=== PATIENT | male | born 1935 | race African-American/Black ===

== ENCOUNTER 2018-06-16 11:37 | Inpatient (IN) | payer MEDICARE, OTHER ==
[~2018-06-16] VITALS: Ht 172.7 cm; Wt 75.3 kg
[~2018-06-16 11:37] MED LIST: ALBU18HF2 INH; ALBUTEROL INH INH; ASCO125T PO; ASPI-1079 PO; ATROV INH; BUDE6HFA INH; DILT120T2 PO; FERR-63 PO; FINA5TAB11 PO; FLONAS; FLUT50DI IH; FOLI-43 PO; FURO20TA4 PO; LOSA50TA20 PO; MONT10TA21 PO; POTA20TA12 PO; SIMV40TA5 PO; TIOT18CA3 INH; TRAV2.5D BOTHEYE; UMEC62.5 IH; [UNRECOGNIZED DRUG - CODE] PO
[2018-06-16] MEDS ORDERED: METHYLPREDNISOLONE SOD SUCC 125 MG/2 ML VIAL IV STA (11:43)
[2018-06-16] MEDS ORDERED: IPRATROPIUM BROMIDE (0.02%) 0.5MG/2.5ML NEB HHN STA (11:43)
[2018-06-16] MEDS ORDERED: MAGNESIUM 2 G PREMIX 50 ML IV STA (11:43)
[2018-06-16] MEDS ORDERED: ALBUTEROL (0.083%) 2.5MG/3ML NEB HHN STA (11:43)
[2018-06-16 12:21] LABS: BASOPHILS % 0.4 % (0.0-2.0); EOSINOPHILS % 6.7 % (0.0-5.0); HEMATOCRIT. 37.5 % (42.0-52.0); HEMOGLOBIN. 12.5 g/dL (14.0-18.0); LYMPHOCYTES % 18.9 % (20.0-50.0); MEAN CORPUSCULAR HEMOGLOBIN 34.4 pg (28.0-32.0); MEAN CORPUSCULAR VOLUME 103.1 fL (80.0-94.0); MEAN PLATELET VOLUME 7.4 fl (7.4-10.4); PLATELET 264 x1000/uL (130-400); RED BLOOD CELL COUNT 3.64 mill/uL (4.7-6.1); RED CELL DISTRIBUTION WIDTH 13.5 % (11.6-14.6)
[2018-06-16 12:27] LABS: CHLORIDE 105 mEq/L (98-107)
[2018-06-16 12:28] LABS: PROTHROMBIN TIME 10.2 sec (9.4-11.6)
[2018-06-16] MEDS ORDERED: LEVOFLOXACIN 750MG PREMIX 150 ML IV ONE (13:45)
[2018-06-16 17:05] VITALS: BP 138/83
[2018-06-16] MEDS: IPRATROPIUM/ALBUTEROL 0.5-3(2.5)MG/3ML NEB HHN SCH ×2 (17:57→20:08)
[2018-06-16 18:00] VITALS: BP 145/86
[2018-06-16] MEDS: METHYLPREDNISOLONE SOD SUCC 125 MG/2 ML VIAL IV SCH ×2 (18:04→23:22)
[2018-06-16 20:00] VITALS: BP 133/73
[2018-06-16] MEDS ORDERED: ENOXAPARIN 40MG/0.4ML SYR SUBCUT SCH (20:00)
[2018-06-16 22:00] VITALS: BP 161/84
[2018-06-16] MEDS ORDERED: MONTELUKAST SODIUM 10MG TABLET PO NR (22:00)
[2018-06-16] MEDS ORDERED: DILTIAZEM HCL 300MG CAPSULE SR 24HR PO NR (22:00)
[2018-06-16] MEDS ORDERED: LOSARTAN POTASSIUM 50 MG TABLET PO NR (22:00)
[2018-06-16] MEDS ORDERED: LORAZEPAM 2MG/ML CPJ IV PRN (22:00)
[2018-06-17] VITALS (13 sets, daily range): BP systolic 121–166; BP diastolic 68–92
[2018-06-17] MEDS ORDERED: CLONIDINE 0.1MG TABLET PO PRN
[2018-06-17 00:02] LABS: BG BASE EXCESS 0.2 mmol/L (-2.0-2.0); BG BILEVEL POS AIRWAY PRESSURE 15/5; BG CARBOXYHEMOGLOBIN 0.4 % (0.5-1.5); BG DEOXYHEMOGLOBIN 5.7 % (0.0-5.0); BG FRACTION INSPIRED OXYGEN 35; BG HCO3 ACT 25.1 mmol/L (22.0-26.0); BG METHEMOGLOBIN 0.2 % (0.0-1.5); BG OXYGEN SATURATION 94.3 % (92.0-98.5); BG OXYHEMOGLOBIN 93.7 % (94.0-97.0); BG PCO2 41.9 mmHg (35.0-45.0); BG PH 7.396 (7.350-7.450); BG PO2 75.3 mmHg (75.0-100.0); BG SAMPLE SITE RIGHT RADIAL; BG TOTAL HEMOGLOBIN 13.3 g/dL (12.0-18.0); BG VENT MODE MASK - BIPAP; BG VENT RATE 14 set
[2018-06-17] MEDS: IPRATROPIUM/ALBUTEROL 0.5-3(2.5)MG/3ML NEB HHN SCH ×7 (00:07→21:01)
[2018-06-17] MEDS: METHYLPREDNISOLONE SOD SUCC 125 MG/2 ML VIAL IV SCH ×3 (05:38→17:48)
[2018-06-17] MEDS: FUROSEMIDE 20MG TABLET PO SCH (10:06)
[2018-06-17] MEDS: ASPIRIN 81MG TABLET PO SCH (10:06)
[2018-06-17] MEDS: DILTIAZEM HCL 300MG CAPSULE SR 24HR PO SCH (10:06)
[2018-06-17] MEDS: POTASSIUM CHLORIDE 20MEQ TABLET SR PO SCH (10:07)
[2018-06-17] MEDS: FINASTERIDE 5MG TABLET PO SCH (10:07)
[2018-06-17] MEDS: FERROUS SULFATE 325MG TABLET PO SCH ×2 (10:07→17:48)
[2018-06-17] MEDS: MONTELUKAST SODIUM 10MG TABLET PO SCH (10:07)
[2018-06-17] MEDS: LOSARTAN POTASSIUM 50 MG TABLET PO SCH (10:07)
[2018-06-17] MEDS: FLUTICASONE PROPIONATE 50MCG/SPRAY BOTTLE BOTHNSTRLS SCH (10:08)
[2018-06-17] MEDS ORDERED: CLONIDINE 0.2MG TABLET PO PRN (13:45)
[2018-06-17] MEDS: LEVOFLOXACIN 500MG PREMIX 100 ML IV SCH (14:59)
[2018-06-17] MEDS: ENOXAPARIN 80MG/0.8ML SYR SUBCUT SCH (21:14)
[2018-06-18] VITALS (13 sets, daily range): BP systolic 126–153; BP diastolic 62–99
[2018-06-18] MEDS: METHYLPREDNISOLONE SOD SUCC 125 MG/2 ML VIAL IV SCH ×5 (00:21→23:28)
[2018-06-18] MEDS: IPRATROPIUM/ALBUTEROL 0.5-3(2.5)MG/3ML NEB HHN SCH ×6 (00:35→20:49)
[2018-06-18 05:36] LABS: HEMOGLOBIN. 12.3 g/dL (14.0-18.0); MEAN CORPUSCULAR HEMOGLOBIN 34.5 pg (28.0-32.0); MEAN CORPUSCULAR VOLUME 104.1 fL (80.0-94.0); MEAN PLATELET VOLUME 7.4 fl (7.4-10.4); PLATELET 264 x1000/uL (130-400); RED BLOOD CELL COUNT 3.55 mill/uL (4.7-6.1); RED CELL DISTRIBUTION WIDTH 13.7 % (11.6-14.6)
[2018-06-18 06:16] LABS: CHLORIDE 104 mEq/L (98-107)
[2018-06-18 06:28] LABS: CREATINE KINASE MB FRACTION 4.4 ng/mL (0.5-3.6); LDL CHOLESTEROL 55 mg/dL (5-100)
[2018-06-18 06:29] LABS: CREATINE KINASE 206 IU/L (39-308); HDL CHOLESTEROL 70 mg/dL (40-59)
[2018-06-18] MEDS: ASPIRIN 81MG TABLET PO SCH (09:54)
[2018-06-18] MEDS: POTASSIUM CHLORIDE 20MEQ TABLET SR PO SCH (09:54)
[2018-06-18] MEDS: DILTIAZEM HCL 300MG CAPSULE SR 24HR PO SCH (09:54)
[2018-06-18] MEDS: FERROUS SULFATE 325MG TABLET PO SCH ×2 (09:54→18:06)
[2018-06-18] MEDS: FUROSEMIDE 20MG TABLET PO SCH (09:54)
[2018-06-18] MEDS: FINASTERIDE 5MG TABLET PO SCH (09:54)
[2018-06-18] MEDS: MONTELUKAST SODIUM 10MG TABLET PO SCH (09:54)
[2018-06-18] MEDS: LOSARTAN POTASSIUM 50 MG TABLET PO SCH (09:54)
[2018-06-18] MEDS: ENOXAPARIN 80MG/0.8ML SYR SUBCUT SCH (09:55)
[2018-06-18] MEDS: FLUTICASONE PROPIONATE 50MCG/SPRAY BOTTLE BOTHNSTRLS SCH (10:01)
[2018-06-18 13:27] LABS: PLATELET ESTIMATE NORMAL
[2018-06-18] MEDS: LEVOFLOXACIN 500MG PREMIX 100 ML IV SCH (13:40)
[2018-06-19] VITALS (14 sets, daily range): BP systolic 129–154; BP diastolic 64–88
[2018-06-19] MEDS: IPRATROPIUM/ALBUTEROL 0.5-3(2.5)MG/3ML NEB HHN SCH ×6 (00:30→20:16)
[2018-06-19] MEDS: METHYLPREDNISOLONE SOD SUCC 125 MG/2 ML VIAL IV SCH ×4 (06:19→23:43)
[2018-06-19 06:52] LABS: CHLORIDE 102 mEq/L (98-107)
[2018-06-19] MEDS: FERROUS SULFATE 325MG TABLET PO SCH ×2 (07:46→17:23)
[2018-06-19] MEDS: FUROSEMIDE 20MG TABLET PO SCH (08:43)
[2018-06-19] MEDS: FINASTERIDE 5MG TABLET PO SCH (08:44)
[2018-06-19] MEDS: MONTELUKAST SODIUM 10MG TABLET PO SCH (08:44)
[2018-06-19] MEDS: DILTIAZEM HCL 300MG CAPSULE SR 24HR PO SCH (08:44)
[2018-06-19] MEDS: ASPIRIN 81MG TABLET PO SCH (08:44)
[2018-06-19] MEDS: POTASSIUM CHLORIDE 20MEQ TABLET SR PO SCH (08:44)
[2018-06-19] MEDS: ENOXAPARIN 40MG/0.4ML SYR SUBCUT SCH (08:44)
[2018-06-19] MEDS: FLUTICASONE PROPIONATE 50MCG/SPRAY BOTTLE BOTHNSTRLS SCH (08:44)
[2018-06-19] MEDS: LOSARTAN POTASSIUM 50 MG TABLET PO SCH (08:44)
[2018-06-19] MEDS: GUAIFENESIN 600MG ER TABLET PO SCH ×2 (11:34→20:33)
[2018-06-19] MEDS: LEVOFLOXACIN 500MG PREMIX 100 ML IV SCH (13:43)
[2018-06-20] VITALS (10 sets, daily range): BP systolic 122–153; BP diastolic 66–87
[2018-06-20] MEDS: IPRATROPIUM/ALBUTEROL 0.5-3(2.5)MG/3ML NEB HHN SCH ×5 (00:58→15:52)
[2018-06-20] MEDS: METHYLPREDNISOLONE SOD SUCC 125 MG/2 ML VIAL IV SCH ×2 (05:26→12:23)
[2018-06-20 05:38] LABS: HEMATOCRIT. 37.3 % (42.0-52.0); HEMOGLOBIN. 12.6 g/dL (14.0-18.0); MEAN CORPUSCULAR HEMOGLOBIN 34.6 pg (28.0-32.0); MEAN CORPUSCULAR VOLUME 102.9 fL (80.0-94.0); MEAN PLATELET VOLUME 7.5 fl (7.4-10.4); PLATELET 271 x1000/uL (130-400); RED BLOOD CELL COUNT 3.62 mill/uL (4.7-6.1); RED CELL DISTRIBUTION WIDTH 13.5 % (11.6-14.6)
[2018-06-20 05:43] LABS: CHLORIDE 103 mEq/L (98-107)
[2018-06-20] MEDS: DILTIAZEM HCL 300MG CAPSULE SR 24HR PO SCH (07:59)
[2018-06-20] MEDS: FINASTERIDE 5MG TABLET PO SCH (07:59)
[2018-06-20] MEDS: LOSARTAN POTASSIUM 50 MG TABLET PO SCH (07:59)
[2018-06-20] MEDS: GUAIFENESIN 600MG ER TABLET PO SCH (07:59)
[2018-06-20] MEDS: FERROUS SULFATE 325MG TABLET PO SCH (07:59)
[2018-06-20] MEDS: POTASSIUM CHLORIDE 20MEQ TABLET SR PO SCH (08:00)
[2018-06-20] MEDS: ASPIRIN 81MG TABLET PO SCH (08:00)
[2018-06-20] MEDS: MONTELUKAST SODIUM 10MG TABLET PO SCH (08:00)
[2018-06-20] MEDS: FUROSEMIDE 20MG TABLET PO SCH (08:00)
[2018-06-20] MEDS: ENOXAPARIN 40MG/0.4ML SYR SUBCUT SCH (08:01)
[2018-06-20] MEDS: FLUTICASONE PROPIONATE 50MCG/SPRAY BOTTLE BOTHNSTRLS SCH (08:13)
[2018-06-20] MEDS ORDERED: LEVOFLOXACIN 500MG TABLET PO SCH (14:00)
[2018-06-20 15:28] LABS: PLATELET ESTIMATE NORMAL
== END 2018-06-20 17:00 | disposition home or self-care (01) | DRG 189 ==
LOC: ER 11:53 → 3WST 13:43 → ENRESERV 14:47 → EDBEDREQ 16:20
PROVIDERS: ADMIT Internal Medicine; ATTEND Internal Medicine
PROC: 5A09357 Assistance with Respiratory Ventilation, Less than 24 Consecutive Hours, Continuous Positive Airway Pressure (ICD-10-PCS; principal; 2018-06-16)
PROC: 5A09357 Assistance with Respiratory Ventilation, Less than 24 Consecutive Hours, Continuous Positive Airway Pressure (ICD-10-PCS; 2018-06-17)
PROC: 5A09357 Assistance with Respiratory Ventilation, Less than 24 Consecutive Hours, Continuous Positive Airway Pressure (ICD-10-PCS; 2018-06-18)
DX: J96.20 Acute and chronic respiratory failure, unspecified whether with hypoxia or hypercapnia (principal); J44.1 Chronic obstructive pulmonary disease with (acute) exacerbation; K55.9 Vascular disorder of intestine, unspecified; J44.0 Chronic obstructive pulmonary disease with (acute) lower respiratory infection; I82.503 Chronic embolism and thrombosis of unspecified deep veins of lower extremity, bilateral; J20.9 Acute bronchitis, unspecified; I25.10 Atherosclerotic heart disease of native coronary artery without angina pectoris; N13.9 Obstructive and reflux uropathy, unspecified; K57.30 Diverticulosis of large intestine without perforation or abscess without bleeding; I44.7 Left bundle-branch block, unspecified; D64.9 Anemia, unspecified; Z96.643 Presence of artificial hip joint, bilateral; E78.00 Pure hypercholesterolemia, unspecified; E11.9 Type 2 diabetes mellitus without complications; R26.9 Unspecified abnormalities of gait and mobility; D72.829 Elevated white blood cell count, unspecified; G89.29 Other chronic pain; I11.0 Hypertensive heart disease with heart failure; M54.5 Low back pain; I50.9 Heart failure, unspecified; M75.92 Shoulder lesion, unspecified, left shoulder; Z82.49 Family history of ischemic heart disease and other diseases of the circulatory system; Z85.46 Personal history of malignant neoplasm of prostate; Z99.81 Dependence on supplemental oxygen; Z87.19 Personal history of other diseases of the digestive system; Z79.899 Other long term (current) drug therapy; Z95.5 Presence of coronary angioplasty implant and graft; Z79.51 Long term (current) use of inhaled steroids; Z79.82 Long term (current) use of aspirin
CPT/HCPCS: 36415; 36600; 71045; 76700; 80048; 80053; 80061; 82375; 82550; 82553; 82805; 83735; 83880; 84439; 84443; 84480; 84484; 85025; 85379; 85610; 87040; 93005; 93970; 96365; 96375; 97116; 97162; 99291; J1650; J1956; J2060; J2930; J3475; J7611; J7620

== ENCOUNTER 2019-03-11 12:30 | Emergency (ER) | payer MEDICARE, OTHER ==
[~2019-03-11] VITALS: Ht 170.2 cm; Wt 73.0 kg
[2019-03-11 13:55] VITALS: BP 154/67
== END 2019-03-11 14:15 | disposition home or self-care (01) ==
LOC: ER 12:30
DX: L02.212 Cutaneous abscess of back [any part, except buttock and flank] (principal); L97.311 Non-pressure chronic ulcer of right ankle limited to breakdown of skin; J44.9 Chronic obstructive pulmonary disease, unspecified; I10 Essential (primary) hypertension; Z99.81 Dependence on supplemental oxygen; Z96.649 Presence of unspecified artificial hip joint
CPT/HCPCS: 99281

== ENCOUNTER 2019-07-13 00:25 | Emergency (ER) | payer MEDICARE, OTHER, MEDICAID ==
[~2019-07-13] VITALS: Ht 175.3 cm; Wt 100.0 kg
[~2019-07-13 00:25] MED LIST changes: -LOSA50TA20 PO; +LOSA50TA41 PO
[2019-07-13] MEDS ORDERED: SODIUM CHLORIDE 0.9% 1,000 ML IV ONE (00:38)
[2019-07-13 01:04] LABS: BASOPHILS % 0.8 % (0.0-2.0); HEMATOCRIT. 37.4 % (42.0-52.0); HEMOGLOBIN. 12.7 g/dL (14.0-18.0); MEAN CORPUSCULAR HEMOGLOBIN 35.4 pg (28.0-32.0); MEAN CORPUSCULAR VOLUME 103.9 fL (80.0-94.0); MONOCYTES % 12.8 % (2.0-8.0); NEUTROPHILS % 63.4 % (40.0-76.0); PLATELET 258 x1000/uL (130-400); RED CELL DISTRIBUTION WIDTH 13.5 % (11.6-14.6)
[2019-07-13 01:10] LABS: CHLORIDE 107 mEq/L (98-107)
[2019-07-13 01:13] LABS: ETHANOL BLOOD < 10 mg/dL
[2019-07-13 02:04] LABS: CLARITY URINE CLEAR (CLEAR); COLOR URINE YELLOW (YELLOW); KETONES URINE NEGATIVE (NEGATIVE); LEUKOCYTE ESTERASE URINE NEGATIVE (NEGATIVE); NITRITE URINE NEGATIVE (NEGATIVE); OCCULT BLOOD URINE NEGATIVE (NEGATIVE); PH URINE 5.5 (4.5-8.0); PROTEIN URINE NEGATIVE (NEGATIVE); SPECIFIC GRAVITY URINE 1.003 (1.005-1.030); UROBILINOGEN URINE 0.2 E.U./dL (0.2-1.0)
[2019-07-13 02:21] LABS: *AMPHETAMINES SCREEN URINE NEGATIVE (NEGATIVE); *BARBITURATES SCREEN URINE NEGATIVE (NEGATIVE); *BENZODIAZEPINES SCREEN URINE NEGATIVE (NEGATIVE); *COCAINE SCREEN URINE NEGATIVE (NEGATIVE); METHADONE URINE SCREEN NEGATIVE (NEGATIVE); OPIATES URINE SCREEN NEGATIVE (NEGATIVE)
[2019-07-13 02:22] LABS: CANNABINOID URINE SCREEN NEGATIVE (NEGATIVE); PHENCYCLIDINE URINE SCREEN NEGATIVE (NEGATIVE)
[2019-07-13 04:38] VITALS: BP 164/76
== END 2019-07-13 04:47 | disposition home or self-care (01) ==
LOC: ER 01:38
DX: R53.1 Weakness (principal); I10 Essential (primary) hypertension; I69.354 Hemiplegia and hemiparesis following cerebral infarction affecting left non-dominant side; Z96.643 Presence of artificial hip joint, bilateral; Z79.82 Long term (current) use of aspirin
CPT/HCPCS: 36415; 70450; 71045; 80053; 80305; 80320; 81003; 84484; 85025; 93005; 99284; J7030; G0480

== ENCOUNTER 2020-09-30 13:21 | Inpatient (IN) | payer MEDICARE, OTHER ==
[~2020-09-30] VITALS: Ht 170.2 cm; Wt 68.9 kg
[~2020-09-30 13:21] MED LIST changes: +SIMV-46 PO; -SIMV40TA5 PO
[2020-09-30 15:13] LABS: BASOPHILS % 0.7 % (0.0-2.0); EOSINOPHILS % 5.7 % (0.0-5.0); HEMATOCRIT. 40.5 % (42.0-52.0); MEAN CORPUSCULAR HEMOGLOBIN 36.3 pg (28.0-32.0); MEAN CORPUSCULAR VOLUME 105.4 fL (80.0-94.0); MEAN PLATELET VOLUME 7.6 fl (7.4-10.4); MONOCYTES % 11.5 % (2.0-8.0); NEUTROPHILS % 65.1 % (40.0-76.0); PLATELET 250 x1000/uL (130-400); RED BLOOD CELL COUNT 3.84 mill/uL (4.7-6.1); RED CELL DISTRIBUTION WIDTH 13.1 % (11.6-14.6)
[2020-09-30 15:20] LABS: CHLORIDE 106 mEq/L (98-107)
[2020-09-30 15:24] LABS: D-DIMER 0.37 mg/L FEU (<0.50); ETHANOL BLOOD < 10 mg/dL; PROTHROMBIN TIME 10.2 sec (9.6-11.0)
[2020-09-30 15:29] LABS: BG BASE EXCESS -1.9 mmol/L (-2.0-2.0); BG DEOXYHEMOGLOBIN 4.5 % (0.0-5.0); BG FRACTION INSPIRED OXYGEN 21; BG HCO3 ACT 22.2 mmol/L (22.0-26.0); BG METHEMOGLOBIN 0.3 % (0.0-1.5); BG OXYGEN SATURATION 95.4 % (92.0-98.5); BG OXYHEMOGLOBIN 94.2 % (94.0-97.0); BG PCO2 35.8 mmHg (35.0-45.0); BG PH 7.411 (7.350-7.450); BG PO2 79.5 mmHg (75.0-100.0); BG SAMPLE SITE LEFT RADIAL; BG TOTAL HEMOGLOBIN 13.2 g/dL (12.0-18.0); BG VENT MODE ROOM AIR
[2020-09-30] MEDS ORDERED: IOHEXOL-350 100 ML BOTTLE ONE (16:51)
[2020-09-30] MEDS: DILTIAZEM HCL 60MG TABLET PO SCH (21:52)
[2020-09-30] MEDS ORDERED: DOCU-150 MT (22:39)
[2020-09-30] MEDS ORDERED: DILT120T2 PO (22:42)
[2020-09-30] MEDS ORDERED: OLME40TA18 PO (22:44)
[2020-09-30] MEDS ORDERED: CEFTRIAXONE 1 G PREMIX 50 ML IV ONE (22:45)
[2020-09-30 23:10] VITALS: BP 155/87
[2020-10-01] VITALS (7 sets, daily range): BP systolic 110–155; BP diastolic 59–87
[2020-10-01] MEDS ORDERED: ACETAMINOPHEN 325MG TABLET PO PRN (00:15)
[2020-10-01] MEDS: IPRATROPIUM/ALBUTEROL 0.5-3(2.5)MG/3ML NEB HHN SCH ×6 (00:41→21:58)
[2020-10-01] MEDS: DILTIAZEM HCL 60MG TABLET PO SCH (06:37)
[2020-10-01 07:36] LABS: BASOPHILS % 1.2 % (0.0-2.0); EOSINOPHILS % 6.6 % (0.0-5.0); HEMATOCRIT. 35.7 % (42.0-52.0); HEMOGLOBIN. 12.2 g/dL (14.0-18.0); LYMPHOCYTES % 24.1 % (20.0-50.0); MEAN CORPUSCULAR HEMOGLOBIN 35.9 pg (28.0-32.0); MEAN CORPUSCULAR VOLUME 104.8 fL (80.0-94.0); MEAN PLATELET VOLUME 7.7 fl (7.4-10.4); MONOCYTES % 14.8 % (2.0-8.0); NEUTROPHILS % 53.3 % (40.0-76.0); PLATELET 230 x1000/uL (130-400); RED BLOOD CELL COUNT 3.41 mill/uL (4.7-6.1); RED CELL DISTRIBUTION WIDTH 13.6 % (11.6-14.6)
[2020-10-01 08:02] LABS: CHLORIDE 107 mEq/L (98-107)
[2020-10-01] MEDS: LOSARTAN POTASSIUM 25 MG TABLET PO SCH (08:06)
[2020-10-01] MEDS: DOCUSATE SODIUM 100MG CAPSULE PO SCH ×2 (08:06→16:47)
[2020-10-01] MEDS: ENOXAPARIN 40MG/0.4ML SYR SUBCUT SCH (08:07)
[2020-10-01] MEDS: FINASTERIDE 5MG TABLET PO SCH (08:51)
[2020-10-01] MEDS: DILTIAZEM HCL 180MG CAPSULE CD 24HR PO SCH ×2 (08:51→20:50)
[2020-10-01] MEDS: FUROSEMIDE 20MG TABLET PO SCH (08:51)
[2020-10-01] MEDS: FOLIC ACID 1MG TABLET PO SCH (08:51)
[2020-10-01] MEDS ORDERED: PATIENT OWN MEDICATION PO SCH (09:00)
[2020-10-01] MEDS ORDERED: ASPIRIN 81MG EC TABLET PO SCH (09:00)
[2020-10-01] MEDS ORDERED: NA PHOS,M-B/NA PHOS,DI-BA ENEMA 118ML PR SCH (13:00)
[2020-10-01] MEDS: ATORVASTATIN CALCIUM 40MG TABLET PO SCH (20:50)
[2020-10-02] VITALS: BP 131/75
[2020-10-02] MEDS: IPRATROPIUM/ALBUTEROL 0.5-3(2.5)MG/3ML NEB HHN SCH ×6 (01:09→21:30)
[2020-10-02 04:00] VITALS: BP 138/74
[2020-10-02 08:00] VITALS: BP 136/74
[2020-10-02] MEDS: FUROSEMIDE 20MG TABLET PO SCH (09:14)
[2020-10-02] MEDS: DOCUSATE SODIUM 100MG CAPSULE PO SCH (09:14)
[2020-10-02] MEDS: DILTIAZEM HCL 180MG CAPSULE CD 24HR PO SCH ×2 (09:14→21:26)
[2020-10-02] MEDS: LOSARTAN POTASSIUM 25 MG TABLET PO SCH (09:14)
[2020-10-02] MEDS: ENOXAPARIN 40MG/0.4ML SYR SUBCUT SCH (09:14)
[2020-10-02] MEDS: ASPIRIN 81MG TABLET PO SCH (09:14)
[2020-10-02] MEDS: FINASTERIDE 5MG TABLET PO SCH (09:14)
[2020-10-02] MEDS: FOLIC ACID 1MG TABLET PO SCH (09:14)
[2020-10-02] MEDS ORDERED: *PATIENT'S OWN MEDICATION STORAGE XX SCH (09:30)
[2020-10-02 12:00] VITALS: BP 129/70
[2020-10-02] MEDS ORDERED: BUDESONIDE 0.5MG/2ML NEB HHN SCH (12:00)
[2020-10-02] MEDS ORDERED: FLUTICASONE/VILANTEROL 200-25 BLST.W.DEV ORI SCH (13:00)
[2020-10-02] MEDS ORDERED: SORBITOL 70% SOLN 30ML PO NR (13:15)
[2020-10-02] MEDS ORDERED: LACTULOSE 20G/30ML UDC PO SCH (14:00)
[2020-10-02 16:00] VITALS: BP 144/76
[2020-10-02] MEDS ORDERED: GUAIFENESIN/DM 600MG/30MG ER TAB 12HR PO PRN (18:00)
[2020-10-02 20:00] VITALS: BP 131/78
[2020-10-02] MEDS: ATORVASTATIN CALCIUM 40MG TABLET PO SCH ×2 (21:25→21:29)
[2020-10-03] VITALS: BP 124/64
[2020-10-03] MEDS: IPRATROPIUM/ALBUTEROL 0.5-3(2.5)MG/3ML NEB HHN SCH ×4 (00:15→12:18)
[2020-10-03 04:00] VITALS: BP 137/60
[2020-10-03 08:00] VITALS: BP 125/68
[2020-10-03] MEDS ORDERED: DOCUSATE SODIUM 100MG CAPSULE PO SCH (09:00)
[2020-10-03] MEDS: LOSARTAN POTASSIUM 25 MG TABLET PO SCH (09:10)
[2020-10-03] MEDS: DILTIAZEM HCL 180MG CAPSULE CD 24HR PO SCH (09:10)
[2020-10-03] MEDS: FUROSEMIDE 20MG TABLET PO SCH (09:10)
[2020-10-03] MEDS: ASPIRIN 81MG TABLET PO SCH (09:10)
[2020-10-03] MEDS: FINASTERIDE 5MG TABLET PO SCH (09:10)
[2020-10-03] MEDS: FOLIC ACID 1MG TABLET PO SCH (09:10)
[2020-10-03] MEDS: ENOXAPARIN 40MG/0.4ML SYR SUBCUT SCH (09:14)
[2020-10-03 12:00] VITALS: BP 117/51
[2020-10-03 13:29] VITALS: BP 117/51
== END 2020-10-03 17:25 | disposition home or self-care (01) | DRG 191 ==
LOC: ER 13:31 → 6WST 16:30 → ENRESERV 21:29
PROVIDERS: ADMIT Internal Medicine; ATTEND Internal Medicine
DX: J44.1 Chronic obstructive pulmonary disease with (acute) exacerbation (principal); J96.10 Chronic respiratory failure, unspecified whether with hypoxia or hypercapnia; I11.0 Hypertensive heart disease with heart failure; E78.00 Pure hypercholesterolemia, unspecified; I25.10 Atherosclerotic heart disease of native coronary artery without angina pectoris; E78.5 Hyperlipidemia, unspecified; I50.9 Heart failure, unspecified; Z96.649 Presence of unspecified artificial hip joint; M48.8X2 Other specified spondylopathies, cervical region; R10.9 Unspecified abdominal pain; M51.86 Other intervertebral disc disorders, lumbar region; K21.9 Gastro-esophageal reflux disease without esophagitis; Z96.643 Presence of artificial hip joint, bilateral; K59.00 Constipation, unspecified; K64.8 Other hemorrhoids; Z79.51 Long term (current) use of inhaled steroids; Z95.5 Presence of coronary angioplasty implant and graft; Z79.82 Long term (current) use of aspirin; Z79.899 Other long term (current) drug therapy; Z86.718 Personal history of other venous thrombosis and embolism; Z86.73 Personal history of transient ischemic attack (TIA), and cerebral infarction without residual deficits; Z87.11 Personal history of peptic ulcer disease; Z87.891 Personal history of nicotine dependence; Z95.828 Presence of other vascular implants and grafts; Z99.81 Dependence on supplemental oxygen
CPT/HCPCS: 36415; 36600; 71045; 71275; 74176; 80048; 80053; 80320; 82375; 82805; 83880; 84484; 85025; 85379; 93005; 94640; 97116; 97162; 99285; J1650; J7626; Q9967; G0480

== ENCOUNTER 2021-08-13 03:42 | Inpatient (IN) | payer MEDICARE, OTHER ==
[~2021-08-13] VITALS: Ht 170.2 cm; Wt 71.7 kg
[~2021-08-13 03:42] MED LIST changes: +DOCU-150 MT; +OLME40TA18 PO; -TRAV2.5D BOTHEYE; +TRAV2.5D9 BOTHEYE
[2021-08-13] MEDS ORDERED: IPRATROPIUM BROMIDE (0.02%) 0.5MG/2.5ML NEB HHN STA (04:08)
[2021-08-13] MEDS ORDERED: METHYLPREDNISOLONE SOD SUCC 125 MG/2 ML VIAL IV STA (04:08)
[2021-08-13] MEDS ORDERED: MAGNESIUM 2 G PREMIX 50 ML IV ONE (04:15)
[2021-08-13] MEDS: ALBUTEROL (0.083%) 2.5MG/3ML NEB HHN SCH ×3 (04:20→06:10)
[2021-08-13 04:47] LABS: BG BASE EXCESS -2.9 mmol/L (-2.0-2.0); BG CARBOXYHEMOGLOBIN 0.3 % (0.5-1.5); BG DEOXYHEMOGLOBIN 0.9 % (0.0-5.0); BG FRACTION INSPIRED OXYGEN 50; BG HCO3 ACT 21.7 mmol/L (22.0-26.0); BG METHEMOGLOBIN 0.4 % (0.0-1.5); BG OXYGEN SATURATION 99.1 % (92.0-98.5); BG OXYHEMOGLOBIN 98.4 % (94.0-97.0); BG PH 7.387 (7.350-7.450); BG SAMPLE SITE RIGHT RADIAL; BG TOTAL HEMOGLOBIN 10.6 g/dL (12.0-18.0); BG VENT MODE MASK - BIPAP
[2021-08-13 04:58] LABS: BASOPHILS % 0.3 % (0.0-2.0); EOSINOPHILS % 4.6 % (0.0-5.0); HEMATOCRIT. 28.4 % (42.0-52.0); HEMOGLOBIN. 9.1 g/dL (14.0-18.0); LYMPHOCYTES % 15.6 % (20.0-50.0); MEAN CORPUSCULAR HEMOGLOBIN 32.3 pg (28.0-32.0); MEAN CORPUSCULAR VOLUME 100.6 fL (80.0-94.0); MEAN PLATELET VOLUME 7.4 fl (7.4-10.4); MONOCYTES % 8.9 % (2.0-8.0); NEUTROPHILS % 70.6 % (40.0-76.0); PLATELET 424 x1000/uL (130-400); RED BLOOD CELL COUNT 2.82 mill/uL (4.7-6.1); RED CELL DISTRIBUTION WIDTH 15.3 % (11.6-14.6)
[2021-08-13 05:08] LABS: CHLORIDE 107 mEq/L (98-107)
[2021-08-13] MEDS: DILTIAZEM HCL 180MG CAPSULE CD 24HR PO SCH (10:15)
[2021-08-13 11:02] VITALS: BP 152/75
[2021-08-13] MEDS ORDERED: ONDANSETRON HCL 4MG/2ML INJ IV PRN (11:45)
[2021-08-13 12:00] VITALS: BP 133/75
[2021-08-13] MEDS: ACETAMINOPHEN 325MG TABLET PO PRN (12:07)
[2021-08-13] MEDS: FINASTERIDE 5MG TABLET PO SCH (12:07)
[2021-08-13] MEDS: ASPIRIN 81MG EC TABLET PO SCH (12:07)
[2021-08-13] MEDS: LOSARTAN POTASSIUM 50 MG TABLET PO SCH (12:07)
[2021-08-13] MEDS: METHYLPREDNISOLONE SOD SUCC 40 MG/ML VIAL IV SCH ×2 (12:07→22:01)
[2021-08-13] MEDS: ENOXAPARIN 40MG/0.4ML SYR SUBCUT SCH (12:08)
[2021-08-13] MEDS: IPRATROPIUM/ALBUTEROL 0.5-3(2.5)MG/3ML NEB NEB SCH ×2 (15:31→20:20)
[2021-08-13 16:00] VITALS: BP 142/76
[2021-08-13] MEDS: GUAIFENESIN 600MG ER TABLET PO PRN (18:26)
[2021-08-13] MEDS ORDERED: MAGNESIUM/ALUMINUM HYDROXIDE/SIMETHICONE 30ML UDC PO PRN (18:30)
[2021-08-13 20:30] VITALS: BP 112/75
[2021-08-13 20:53] LABS: CREATINE KINASE MB FRACTION 5.6 ng/mL (0.5-3.6)
[2021-08-13 23:55] LABS: CREATINE KINASE MB FRACTION 5.8 ng/mL (0.5-3.6)
[2021-08-14 00:14] VITALS: BP 148/62
[2021-08-14] MEDS: IPRATROPIUM/ALBUTEROL 0.5-3(2.5)MG/3ML NEB NEB SCH ×6 (00:16→20:58)
[2021-08-14 03:53] VITALS: BP 125/57
[2021-08-14] MEDS: METHYLPREDNISOLONE SOD SUCC 40 MG/ML VIAL IV SCH ×3 (05:55→21:46)
[2021-08-14 06:19] LABS: CHLORIDE 109 mEq/L (98-107); HEMATOCRIT. 28.4 % (42.0-52.0); HEMOGLOBIN. 9.3 g/dL (14.0-18.0); MEAN CORPUSCULAR HEMOGLOBIN 32.5 pg (28.0-32.0); MEAN CORPUSCULAR VOLUME 98.8 fL (80.0-94.0); MEAN PLATELET VOLUME 7.3 fl (7.4-10.4); PLATELET 393 x1000/uL (130-400); RED BLOOD CELL COUNT 2.87 mill/uL (4.7-6.1); RED CELL DISTRIBUTION WIDTH 15.1 % (11.6-14.6)
[2021-08-14 06:26] LABS: LDL CHOLESTEROL 49 mg/dL (5-100); TOTAL IRON BINDING CAPACITY 192 ug/dL (250-450)
[2021-08-14 06:28] LABS: HDL CHOLESTEROL 73 mg/dL (40-59)
[2021-08-14 06:43] LABS: FERRITIN 348 ng/mL (22-322)
[2021-08-14 06:46] LABS: FOLIC ACID (FOLATE) SERUM > 20.00 ng/mL (>5.38)
[2021-08-14 06:53] LABS: VITAMIN B12 SERUM 1474 pg/mL (211-911)
[2021-08-14 08:00] VITALS: BP 116/53
[2021-08-14] MEDS: FINASTERIDE 5MG TABLET PO SCH (09:26)
[2021-08-14] MEDS: LOSARTAN POTASSIUM 50 MG TABLET PO SCH (09:26)
[2021-08-14] MEDS: ASPIRIN 81MG EC TABLET PO SCH (09:26)
[2021-08-14] MEDS: ACETAMINOPHEN 325MG TABLET PO PRN ×2 (09:26→17:10)
[2021-08-14] MEDS: DILTIAZEM HCL 180MG CAPSULE CD 24HR PO SCH (09:27)
[2021-08-14 10:12] LABS: BG CARBOXYHEMOGLOBIN 0.3 % (0.5-1.5); BG DEOXYHEMOGLOBIN 1.7 % (0.0-5.0); BG FRACTION INSPIRED OXYGEN 32; BG HCO3 ACT 24.6 mmol/L (22.0-26.0); BG METHEMOGLOBIN 0.1 % (0.0-1.5); BG OXYGEN SATURATION 98.3 % (92.0-98.5); BG OXYHEMOGLOBIN 97.9 % (94.0-97.0); BG PCO2 39.7 mmHg (35.0-45.0); BG PO2 138.1 mmHg (75.0-100.0); BG SAMPLE SITE LEFT RADIAL; BG VENT MODE NASAL CANNULA
[2021-08-14 11:34] LABS: PLATELET ESTIMATE NORMAL
[2021-08-14] MEDS: GUAIFENESIN 600MG ER TABLET PO PRN (11:52)
[2021-08-14] MEDS: ENOXAPARIN 40MG/0.4ML SYR SUBCUT SCH (11:52)
[2021-08-14] MEDS: FERROUS SULFATE 325MG TABLET PO SCH ×2 (11:53→17:01)
[2021-08-14] MEDS: ASCORBIC ACID 500 MG TABLET PO SCH (11:53)
[2021-08-14 12:00] VITALS: BP 139/57
[2021-08-14] MEDS ORDERED: CLONIDINE 0.1MG TABLET PO PRN (12:00)
[2021-08-14 16:00] VITALS: BP 132/54
[2021-08-14 20:00] VITALS: BP 138/74
[2021-08-15 00:23] VITALS: BP 135/62
[2021-08-15] MEDS: GUAIFENESIN 600MG ER TABLET PO PRN ×2 (00:55→22:06)
[2021-08-15] MEDS: IPRATROPIUM/ALBUTEROL 0.5-3(2.5)MG/3ML NEB NEB SCH ×6 (01:06→20:41)
[2021-08-15 04:30] VITALS: BP 145/55
[2021-08-15 05:17] LABS: CHLORIDE 106 mEq/L (98-107)
[2021-08-15 05:22] LABS: HEMATOCRIT. 28.2 % (42.0-52.0); HEMOGLOBIN. 9.2 g/dL (14.0-18.0); MEAN CORPUSCULAR HEMOGLOBIN 32.2 pg (28.0-32.0); MEAN CORPUSCULAR VOLUME 98.3 fL (80.0-94.0); MEAN PLATELET VOLUME 7.2 fl (7.4-10.4); PLATELET 378 x1000/uL (130-400); RED BLOOD CELL COUNT 2.87 mill/uL (4.7-6.1)
[2021-08-15 05:28] LABS: T4 FREE 1.06 ng/dL (0.76-1.46)
[2021-08-15] MEDS: METHYLPREDNISOLONE SOD SUCC 40 MG/ML VIAL IV SCH ×3 (05:36→22:04)
[2021-08-15] MEDS: ACETAMINOPHEN 325MG TABLET PO PRN ×2 (06:19→22:06)
[2021-08-15 08:00] VITALS: BP 145/55
[2021-08-15] MEDS: ASCORBIC ACID 500 MG TABLET PO SCH (09:54)
[2021-08-15] MEDS: LOSARTAN POTASSIUM 50 MG TABLET PO SCH (09:54)
[2021-08-15] MEDS: FERROUS SULFATE 325MG TABLET PO SCH ×3 (09:54→17:36)
[2021-08-15] MEDS: FINASTERIDE 5MG TABLET PO SCH (09:54)
[2021-08-15] MEDS: ASPIRIN 81MG EC TABLET PO SCH (09:54)
[2021-08-15] MEDS: DILTIAZEM HCL 180MG CAPSULE CD 24HR PO SCH (09:55)
[2021-08-15 12:00] VITALS: BP 144/55
[2021-08-15] MEDS: ENOXAPARIN 40MG/0.4ML SYR SUBCUT SCH (13:07)
[2021-08-15 13:20] LABS: NUCLEATED RED BLOOD CELLS 1 /100 WBC; PLATELET ESTIMATE NORMAL
[2021-08-15 16:00] VITALS: BP 126/47
[2021-08-15 20:00] VITALS: BP 134/57
[2021-08-15] MEDS ORDERED: MEDICATION NOT ON FORMULARY EA (Travoprost (Travatan Z) 1 DROP) BOTHEYE SCH (21:00)
[2021-08-15] MEDS: LATANOPROST 0.005% OPHTH DROPS 2.5ML BOTHEYE SCH (22:04)
[2021-08-16] VITALS (7 sets, daily range): BP systolic 121–160; BP diastolic 51–67
[2021-08-16] MEDS: IPRATROPIUM/ALBUTEROL 0.5-3(2.5)MG/3ML NEB NEB SCH ×6 (00:47→20:34)
[2021-08-16] MEDS: METHYLPREDNISOLONE SOD SUCC 40 MG/ML VIAL IV SCH ×3 (06:00→21:43)
[2021-08-16] MEDS: FERROUS SULFATE 325MG TABLET PO SCH ×3 (08:49→17:25)
[2021-08-16] MEDS: FINASTERIDE 5MG TABLET PO SCH (08:50)
[2021-08-16] MEDS: ASPIRIN 81MG EC TABLET PO SCH (08:50)
[2021-08-16] MEDS: DILTIAZEM HCL 180MG CAPSULE CD 24HR PO SCH (08:50)
[2021-08-16] MEDS: ASCORBIC ACID 500 MG TABLET PO SCH (08:50)
[2021-08-16] MEDS: LOSARTAN POTASSIUM 50 MG TABLET PO SCH (08:50)
[2021-08-16] MEDS: ENOXAPARIN 40MG/0.4ML SYR SUBCUT SCH (12:08)
[2021-08-16] MEDS: GUAIFENESIN 600MG ER TABLET PO PRN (17:25)
[2021-08-16] MEDS: LATANOPROST 0.005% OPHTH DROPS 2.5ML BOTHEYE SCH (21:43)
[2021-08-17] VITALS: BP 118/60
[2021-08-17] MEDS: IPRATROPIUM/ALBUTEROL 0.5-3(2.5)MG/3ML NEB NEB SCH ×4 (01:22→12:02)
[2021-08-17 04:00] VITALS: BP 126/50
[2021-08-17] MEDS: METHYLPREDNISOLONE SOD SUCC 40 MG/ML VIAL IV SCH ×2 (06:21→13:02)
[2021-08-17 08:02] VITALS: BP 122/70
[2021-08-17] MEDS: FERROUS SULFATE 325MG TABLET PO SCH ×2 (08:21→12:02)
[2021-08-17] MEDS: FINASTERIDE 5MG TABLET PO SCH (08:22)
[2021-08-17] MEDS: ASCORBIC ACID 500 MG TABLET PO SCH (08:22)
[2021-08-17] MEDS: LOSARTAN POTASSIUM 50 MG TABLET PO SCH (08:22)
[2021-08-17] MEDS: ASPIRIN 81MG EC TABLET PO SCH (08:22)
[2021-08-17] MEDS: DILTIAZEM HCL 180MG CAPSULE CD 24HR PO SCH (08:22)
[2021-08-17] MEDS: ENOXAPARIN 40MG/0.4ML SYR SUBCUT SCH (11:18)
[2021-08-17 12:16] VITALS: BP 124/68
[2021-08-17 12:24] VITALS: BP 116/55
[2021-08-17 15:51] VITALS: BP 128/57
[2021-08-21 19:10] LABS: 25-HYDROXY VITAMIN D3 31 ng/mL (.)
== END 2021-08-17 19:01 | disposition home or self-care (01) | DRG 871 ==
LOC: ER 03:42 → 7WST 05:05 → EDBEDREQSVC 06:23 → EDBEDREQTM 06:23 → ENRESERV 07:22 → 6WST 17:30
PROVIDERS: ADMIT Internal Medicine; ATTEND Internal Medicine
PROC: 5A09357 Assistance with Respiratory Ventilation, Less than 24 Consecutive Hours, Continuous Positive Airway Pressure (ICD-10-PCS; principal; 2021-08-13)
PROC: 5A09357 Assistance with Respiratory Ventilation, Less than 24 Consecutive Hours, Continuous Positive Airway Pressure (ICD-10-PCS; 2021-08-15)
PROC: 5A09357 Assistance with Respiratory Ventilation, Less than 24 Consecutive Hours, Continuous Positive Airway Pressure (ICD-10-PCS; 2021-08-17)
DX: A41.9 Sepsis, unspecified organism (principal); J96.01 Acute respiratory failure with hypoxia; I50.31 Acute diastolic (congestive) heart failure; J44.1 Chronic obstructive pulmonary disease with (acute) exacerbation; I82.513 Chronic embolism and thrombosis of femoral vein, bilateral; M13.0 Polyarthritis, unspecified; M48.02 Spinal stenosis, cervical region; D50.9 Iron deficiency anemia, unspecified; E78.5 Hyperlipidemia, unspecified; R73.9 Hyperglycemia, unspecified; R53.81 Other malaise; R26.9 Unspecified abnormalities of gait and mobility; I11.0 Hypertensive heart disease with heart failure; I25.10 Atherosclerotic heart disease of native coronary artery without angina pectoris; Z96.643 Presence of artificial hip joint, bilateral; Z20.822 Contact with and (suspected) exposure to COVID-19; Z78.9 Other specified health status; Z79.82 Long term (current) use of aspirin; Z79.899 Other long term (current) drug therapy; Z82.49 Family history of ischemic heart disease and other diseases of the circulatory system; Z86.73 Personal history of transient ischemic attack (TIA), and cerebral infarction without residual deficits; Z87.891 Personal history of nicotine dependence; Z95.5 Presence of coronary angioplasty implant and graft; Z95.828 Presence of other vascular implants and grafts; Z99.81 Dependence on supplemental oxygen
CPT/HCPCS: 36415; 36600; 71045; 78580; 80048; 80053; 80061; 82306; 82375; 82550; 82553; 82607; 82728; 82746; 82805; 83540; 83550; 83605; 83735; 83880; 84145; 84439; 84443; 84481; 84484; 85025; 85044; 85379; 92610; 93005; 93970; 94640; 94660; 97161; 97166; 99291; J1650; J2920; J2930; J3475; U0003; U0005

== ENCOUNTER 2022-03-18 18:44 | Inpatient (IN) | payer MEDICARE, OTHER ==
[~2022-03-18] VITALS: Ht 170.2 cm; Wt 70.0 kg
[2022-03-18 20:51] LABS: CHLORIDE 108 mEq/L (98-107)
[2022-03-18 20:57] LABS: BASOPHILS % 0.7 % (0.0-2.0); EOSINOPHILS % 6.8 % (0.0-5.0); HEMATOCRIT. 24.5 % (42.0-52.0); HEMOGLOBIN. 7.2 g/dL (14.0-18.0); LYMPHOCYTES % 12.1 % (20.0-50.0); MEAN CORPUSCULAR HEMOGLOBIN 27.3 pg (28.0-32.0); MEAN CORPUSCULAR VOLUME 92.4 fL (80.0-94.0); MONOCYTES % 12.4 % (2.0-8.0); PLATELET 391 x1000/uL (130-400); RED BLOOD CELL COUNT 2.65 mill/uL (4.7-6.1); RED CELL DISTRIBUTION WIDTH 19.5 % (11.6-14.6)
[2022-03-19] MEDS ORDERED: ALBUTEROL (0.083%) 2.5MG/3ML NEB HHN STA (01:34)
[2022-03-19] MEDS ORDERED: IPRATROPIUM BROMIDE (0.02%) 0.5MG/2.5ML NEB HHN STA (01:34)
[2022-03-19] MEDS ORDERED: METHYLPREDNISOLONE SOD SUCC 125 MG/2 ML VIAL IV STA (01:34)
[2022-03-19] MEDS ORDERED: SODIUM CHLORIDE 0.9% 1,000 ML IV ONE (01:45)
[2022-03-19] MEDS ORDERED: IPRATROPIUM/ALBUTEROL 0.5-3(2.5)MG/3ML NEB HHN SCH (04:00)
[2022-03-19] MEDS: IPRATROPIUM/ALBUTEROL 0.5-3(2.5)MG/3ML NEB HHN PRN (09:46)
[2022-03-19 10:00] VITALS: BP 155/79
[2022-03-19 11:05] VITALS: BP 147/74
[2022-03-19] MEDS ORDERED: optiva EACHEYE (12:13)
[2022-03-19] MEDS ORDERED: LATANOPROST EACHEYE (12:13)
[2022-03-19] MEDS ORDERED: ONDANSETRON HCL 4MG/2ML INJ IV PRN (14:00)
[2022-03-19] MEDS ORDERED: ACETAMINOPHEN 325MG TABLET PO PRN (14:00)
[2022-03-19] MEDS: IPRATROPIUM/ALBUTEROL 0.5-3(2.5)MG/3ML NEB NEB SCH ×2 (15:05→20:38)
[2022-03-19] MEDS: FUROSEMIDE 40MG/4ML VIAL IVP SCH (15:25)
[2022-03-19] MEDS: METHYLPREDNISOLONE SOD SUCC 40 MG/ML VIAL IV SCH (15:25)
[2022-03-19] MEDS: PANTOPRAZOLE SODIUM 40 MG/VIAL IV SCH (15:25)
[2022-03-19 16:00] VITALS: BP 143/68
[2022-03-19 17:07] LABS: HEMATOCRIT 25.9 % (42.0-52.0); HEMOGLOBIN 7.8 g/dL (14.0-18.0)
[2022-03-19 18:00] VITALS: BP 144/70
[2022-03-19 18:39] LABS: CLARITY URINE CLEAR (CLEAR); COLOR URINE YELLOW (YELLOW); KETONES URINE NEGATIVE (NEGATIVE); LEUKOCYTE ESTERASE URINE NEGATIVE (NEGATIVE); NITRITE URINE NEGATIVE (NEGATIVE); OCCULT BLOOD URINE NEGATIVE (NEGATIVE); PROTEIN URINE NEGATIVE (NEGATIVE); SPECIFIC GRAVITY URINE 1.007 (1.005-1.030); UROBILINOGEN URINE 0.2 E.U./dL (0.2-1.0)
[2022-03-19 20:35] VITALS: BP 140/74
[2022-03-19 22:00] VITALS: BP 136/67
[2022-03-19] MEDS: PSYLLIUM SEED PACKET PO SCH (22:24)
[2022-03-19] MEDS: DILTIAZEM HCL 90MG TABLET PO SCH (22:25)
[2022-03-19] MEDS: LACTULOSE 20G/30ML UDC PO SCH (22:26)
[2022-03-20] VITALS (12 sets, daily range): BP systolic 111–138; BP diastolic 41–69
[2022-03-20] MEDS: IPRATROPIUM/ALBUTEROL 0.5-3(2.5)MG/3ML NEB NEB SCH ×6 (00:33→21:10)
[2022-03-20] MEDS: METHYLPREDNISOLONE SOD SUCC 40 MG/ML VIAL IV SCH ×2 (01:33→13:27)
[2022-03-20] MEDS ORDERED: NA PHOS,M-B/NA PHOS,DI-BA ENEMA 118ML PR NR (06:00)
[2022-03-20 06:26] LABS: HEMOGLOBIN. 7.6 g/dL (14.0-18.0); MEAN CORPUSCULAR HEMOGLOBIN 27.8 pg (28.0-32.0); MEAN CORPUSCULAR VOLUME 91.1 fL (80.0-94.0); MEAN PLATELET VOLUME 7.7 fl (7.4-10.4); PLATELET 434 x1000/uL (130-400); RED BLOOD CELL COUNT 2.74 mill/uL (4.7-6.1); RED CELL DISTRIBUTION WIDTH 19.2 % (11.6-14.6)
[2022-03-20 06:40] LABS: CHLORIDE 110 mEq/L (98-107)
[2022-03-20] MEDS: LACTULOSE 20G/30ML UDC PO SCH ×3 (06:54→22:02)
[2022-03-20] MEDS: FUROSEMIDE 40MG/4ML VIAL IVP SCH (10:26)
[2022-03-20] MEDS: PANTOPRAZOLE SODIUM 40 MG/VIAL IV SCH (10:26)
[2022-03-20] MEDS: DILTIAZEM HCL 90MG TABLET PO SCH ×2 (10:27→21:53)
[2022-03-20] MEDS: PSYLLIUM SEED PACKET PO SCH ×3 (10:27→17:00)
[2022-03-20] MEDS: FINASTERIDE 5MG TABLET PO SCH (10:33)
[2022-03-20 10:35] LABS: PLATELET ESTIMATE SLIGHTLY INCREASED
[2022-03-20] MEDS ORDERED: SORBITOL 70% SOLN 30ML PO NR (21:00)
[2022-03-20] MEDS: LATANOPROST 0.005% OPHTH DROPS 2.5ML EACHEYE SCH (21:53)
[2022-03-20] MEDS: AZELASTINE HCL 0.05% EACHEYE SCH (21:53)
[2022-03-21] VITALS (12 sets, daily range): BP systolic 115–142; BP diastolic 42–88
[2022-03-21] MEDS: IPRATROPIUM/ALBUTEROL 0.5-3(2.5)MG/3ML NEB NEB SCH ×6 (00:37→21:06)
[2022-03-21] MEDS: METHYLPREDNISOLONE SOD SUCC 40 MG/ML VIAL IV SCH ×2 (02:03→14:00)
[2022-03-21] MEDS ORDERED: SORBITOL 70% SOLN 30ML PO NR (05:00)
[2022-03-21] MEDS ORDERED: NA PHOS,M-B/NA PHOS,DI-BA ENEMA 118ML PR NR ×2 (05:00→08:15)
[2022-03-21 05:33] LABS: HEMATOCRIT. 24.5 % (42.0-52.0); HEMOGLOBIN. 7.2 g/dL (14.0-18.0); MEAN CORPUSCULAR HEMOGLOBIN 27.1 pg (28.0-32.0); MEAN CORPUSCULAR VOLUME 92.1 fL (80.0-94.0); PLATELET 440 x1000/uL (130-400); RED BLOOD CELL COUNT 2.66 mill/uL (4.7-6.1); RED CELL DISTRIBUTION WIDTH 19.7 % (11.6-14.6)
[2022-03-21] MEDS: LACTULOSE 20G/30ML UDC PO SCH ×3 (05:41→21:25)
[2022-03-21] MEDS: FINASTERIDE 5MG TABLET PO SCH (08:57)
[2022-03-21] MEDS: DILTIAZEM HCL 90MG TABLET PO SCH (08:57)
[2022-03-21] MEDS: PSYLLIUM SEED PACKET PO SCH ×3 (08:57→17:00)
[2022-03-21] MEDS: PANTOPRAZOLE SODIUM 40 MG/VIAL IV SCH (09:38)
[2022-03-21] MEDS: AZELASTINE HCL 0.05% EACHEYE SCH ×2 (09:38→18:58)
[2022-03-21] MEDS: FUROSEMIDE 40MG/4ML VIAL IVP SCH (09:38)
[2022-03-21] MEDS ORDERED: METOCLOPRAMIDE HCL 10MG/2ML VIAL IV SCH (11:30)
[2022-03-21] MEDS ORDERED: SORBITOL 70% SOLN 30ML PO SCH (11:30)
[2022-03-21] MEDS ORDERED: SORBITOL 70% SOLN 30ML ONE (12:19)
[2022-03-21 12:51] LABS: PROTHROMBIN TIME 10.8 sec (9.6-11.0)
[2022-03-21 14:11] LABS: NUCLEATED RED BLOOD CELLS 5 /100 WBC; PLATELET ESTIMATE INCREASED
[2022-03-21] MEDS ORDERED: ETOMIDATE 2MG/ML 10ML VIAL IV ONE ×2 (15:52→16:22)
[2022-03-21] MEDS ORDERED: MIDAZOLAM HCL 2 MG/2 ML VIAL ONE (15:54)
[2022-03-21] MEDS ORDERED: EPHEDRINE SULFATE 50MG/ML VIAL ONE (16:03)
[2022-03-21] MEDS: IPRATROPIUM/ALBUTEROL 0.5-3(2.5)MG/3ML NEB HHN PRN (17:56)
[2022-03-21] MEDS: DILTIAZEM HCL 60MG TABLET PO SCH (18:57)
[2022-03-21] MEDS: LATANOPROST 0.005% OPHTH DROPS 2.5ML EACHEYE SCH (21:26)
[2022-03-22] VITALS (34 sets, daily range): BP systolic 67–163; BP diastolic 25–65
[2022-03-22] MEDS: IPRATROPIUM/ALBUTEROL 0.5-3(2.5)MG/3ML NEB NEB SCH ×4 (00:15→12:31)
[2022-03-22 00:24] LABS: BG BASE EXCESS -6.7 mmol/L (-2.0-2.0); BG FRACTION INSPIRED OXYGEN 60; BG HCO3 ACT 20.3 mmol/L (22.0-26.0); BG METHEMOGLOBIN 0.4 % (0.0-1.5); BG OXYHEMOGLOBIN 96.6 % (94.0-97.0); BG PCO2 46.9 mmHg (35.0-45.0); BG PH 7.254 (7.350-7.450); BG PO2 127.6 mmHg (75.0-100.0); BG SAMPLE SITE RIGHT RADIAL; BG TOTAL HEMOGLOBIN 10.9 g/dL (12.0-18.0); BG VENT MODE MASK - VENTI
[2022-03-22 00:37] LABS: HEMATOCRIT. 35.4 % (42.0-52.0); HEMOGLOBIN. 10.3 g/dL (14.0-18.0); MEAN CORPUSCULAR HEMOGLOBIN 27.2 pg (28.0-32.0); MEAN CORPUSCULAR VOLUME 93.1 fL (80.0-94.0); MEAN PLATELET VOLUME 7.5 fl (7.4-10.4); PLATELET 214 x1000/uL (130-400); RED CELL DISTRIBUTION WIDTH 20.2 % (11.6-14.6)
[2022-03-22] MEDS ORDERED: PROPOFOL 10MG/ML 100ML 100 ML IV PRN (01:30)
[2022-03-22] MEDS: METHYLPREDNISOLONE SOD SUCC 40 MG/ML VIAL IV SCH ×2 (02:00→13:45)
[2022-03-22] MEDS ORDERED: PHENYLEPHRINE 100 MG in DEXT 5% WATER 240 ML IV PRN (02:00)
[2022-03-22] MEDS ORDERED: FENTANYL 2500MCG/250ML PMX 250 ML IV PRN (02:30)
[2022-03-22 02:33] LABS: BG CARBOXYHEMOGLOBIN 0.9 % (0.5-1.5); BG DEOXYHEMOGLOBIN 5.1 % (0.0-5.0); BG FRACTION INSPIRED OXYGEN 60; BG HCO3 ACT 18.6 mmol/L (22.0-26.0); BG METHEMOGLOBIN 0.6 % (0.0-1.5); BG OXYGEN SATURATION 94.8 % (92.0-98.5); BG OXYHEMOGLOBIN 93.4 % (94.0-97.0); BG PCO2 42.3 mmHg (35.0-45.0); BG PH 7.261 (7.350-7.450); BG SAMPLE SITE RIGHT BRACHIAL; BG TOTAL HEMOGLOBIN 10.7 g/dL (12.0-18.0); BG VENT MODE VENT - AC
[2022-03-22 04:55] LABS: NUCLEATED RED BLOOD CELLS 7 /100 WBC; PLATELET ESTIMATE NORMAL
[2022-03-22] MEDS: DILTIAZEM HCL 60MG TABLET PO SCH (05:58)
[2022-03-22] MEDS: LACTULOSE 20G/30ML UDC PO SCH (06:00)
[2022-03-22] MEDS: NOREPINEPHRINE 32 MG in DEXT 5% WATER 218 ML IV PRN ×2 (06:27→06:55)
[2022-03-22] MEDS ORDERED: BUPIVACAINE HCL/PF 0.5% (5MG/ML) 10ML ONE (08:09)
[2022-03-22] MEDS ORDERED: BUPIVACAINE HCL 0.5% (5MG/ML) 50ML ONE (08:10)
[2022-03-22 08:27] LABS: BG BASE EXCESS -15.6 mmol/L (-2.0-2.0); BG CARBOXYHEMOGLOBIN 0.4 % (0.5-1.5); BG DEOXYHEMOGLOBIN 3.7 % (0.0-5.0); BG FRACTION INSPIRED OXYGEN 60; BG HCO3 ACT 11.8 mmol/L (22.0-26.0); BG METHEMOGLOBIN 0.4 % (0.0-1.5); BG OXYGEN SATURATION 96.3 % (92.0-98.5); BG OXYHEMOGLOBIN 95.5 % (94.0-97.0); BG PCO2 33.6 mmHg (35.0-45.0); BG PH 7.165 (7.350-7.450); BG PO2 102.2 mmHg (75.0-100.0); BG SAMPLE SITE RIGHT RADIAL; BG TOTAL HEMOGLOBIN 11.4 g/dL (12.0-18.0); BG VENT MODE VENT - AC
[2022-03-22] MEDS ORDERED: ROCURONIUM BROMIDE 10MG/ML VIAL 5ML IV ONE (08:28)
[2022-03-22] MEDS ORDERED: SODIUM BICARBONATE 8.4% 1 MEQ/ML 50ML SYR IV ONE ×3 (08:34→11:14)
[2022-03-22] MEDS ORDERED: EPINEPHRINE 10 MG in SODIUM CHLORIDE 0.9% 240 ML IV STA (08:37)
[2022-03-22] MEDS ORDERED: PHENYLEPHRINE 100 MG in DEXT 5% WATER 240 ML IV STA (08:41)
[2022-03-22] MEDS ORDERED: EPINEPHRINE 10 MG in SODIUM CHLORIDE 0.9% 250 ML IV PRN (08:45)
[2022-03-22] MEDS ORDERED: CALCIUM CHLORIDE 1GM/10ML SYR IV ONE ×2 (08:52→11:14)
[2022-03-22] MEDS: PSYLLIUM SEED PACKET PO SCH ×2 (09:00→13:00)
[2022-03-22] MEDS: FUROSEMIDE 40MG/4ML VIAL IVP SCH (09:00)
[2022-03-22] MEDS: FINASTERIDE 5MG TABLET PO SCH (09:00)
[2022-03-22] MEDS: PANTOPRAZOLE SODIUM 40 MG/VIAL IV SCH (09:00)
[2022-03-22] MEDS: AZELASTINE HCL 0.05% EACHEYE SCH (09:00)
[2022-03-22] MEDS ORDERED: ALBUMIN HUMAN 25GM/100ML (25%) IV ONE (09:10)
[2022-03-22 09:35] LABS: HEMATOCRIT. 30.8 % (42.0-52.0); HEMOGLOBIN. 9.1 g/dL (14.0-18.0); MEAN CORPUSCULAR HEMOGLOBIN 27.5 pg (28.0-32.0); MEAN CORPUSCULAR VOLUME 92.6 fL (80.0-94.0); MEAN PLATELET VOLUME 7.3 fl (7.4-10.4); PLATELET 87 x1000/uL (130-400); RED BLOOD CELL COUNT 3.33 mill/uL (4.7-6.1); RED CELL DISTRIBUTION WIDTH 19.7 % (11.6-14.6)
[2022-03-22 09:47] LABS: CHLORIDE 111 mEq/L (98-107)
[2022-03-22] MEDS ORDERED: CEFAZOLIN SODIUM 1000MG/VIAL ONE (09:50)
[2022-03-22 10:15] LABS: NUCLEATED RED BLOOD CELLS 28 /100 WBC
[2022-03-22 10:16] LABS: PLATELET ESTIMATE DECREASED
[2022-03-22] MEDS ORDERED: DEXTROSE 50% WATER 50ML SYRINGE IV ONE (11:14)
[2022-03-22] MEDS ORDERED: ATROPINE SULFATE 1MG/10ML SYR ONE (11:14)
[2022-03-22] MEDS ORDERED: EPINEPHRINE 0.1MG/ML (1:10,000) 10ML SYR ONE (11:14)
[2022-03-22] MEDS ORDERED: SODIUM BICARBONATE 8.4% 1 MEQ/ML 50ML SYR IV SCH (11:45)
[2022-03-22] MEDS ORDERED: SODIUM BICARBONATE 100 MEQ in DEXTROSE 5% WATER 1,000 ML IV SCH (12:00)
[2022-03-22 13:26] LABS: HEMATOCRIT. 25.3 % (42.0-52.0); HEMOGLOBIN. 7.4 g/dL (14.0-18.0); MEAN CORPUSCULAR HEMOGLOBIN 27.3 pg (28.0-32.0); MEAN CORPUSCULAR VOLUME 93.6 fL (80.0-94.0); PLATELET 62 x1000/uL (130-400); RED CELL DISTRIBUTION WIDTH 20.7 % (11.6-14.6)
[2022-03-22 13:26] LABS: CREATINE KINASE 1126 IU/L (39-308)
[2022-03-22 13:40] LABS: CLARITY URINE CLOUDY (CLEAR); COLOR URINE YELLOW (YELLOW); KETONES URINE NEGATIVE (NEGATIVE); LEUKOCYTE ESTERASE URINE TRACE (NEGATIVE); NITRITE URINE NEGATIVE (NEGATIVE); OCCULT BLOOD URINE 3+ (NEGATIVE); PH URINE 5.5 (4.5-8.0); PROTEIN URINE 3+ (NEGATIVE); SPECIFIC GRAVITY URINE 1.013 (1.005-1.030); UROBILINOGEN URINE 0.2 E.U./dL (0.2-1.0)
[2022-03-22 13:59] LABS: NUCLEATED RED BLOOD CELLS 35 /100 WBC
[2022-03-22 14:00] LABS: PLATELET ESTIMATE DECREASED
[2022-03-22] MEDS ORDERED: ALBUMIN HUMAN 25GM/100ML (25%) IV SCH (14:00)
[2022-03-22] MEDS ORDERED: DEXT 10% WATER 1,000 ML IV SCH (15:00)
[2022-03-22] MEDS ORDERED: DEXTROSE 50% WATER 50ML SYRINGE IV PRN (15:00)
[2022-03-22] MEDS ORDERED: BLOOD SUGAR DIAGNOSTIC STRIP TEST SCH (16:30)
[2022-03-23 06:25] LABS: BG BASE EXCESS -4.1 mmol/L (-2.0-2.0); BG CARBOXYHEMOGLOBIN 0.7 % (0.5-1.5); BG DEOXYHEMOGLOBIN 7.3 % (0.0-5.0); BG HCO3 ACT 24.1 mmol/L (22.0-26.0); BG METHEMOGLOBIN 0.4 % (0.0-1.5); BG OXYGEN SATURATION 92.6 % (92.0-98.5); BG OXYHEMOGLOBIN 91.6 % (94.0-97.0); BG PCO2 60.6 mmHg (35.0-45.0); BG PH 7.217 (7.350-7.450); BG PO2 80.4 mmHg (75.0-100.0); BG SAMPLE SITE Other; BG TOTAL HEMOGLOBIN 10.4 g/dL (12.0-18.0)
[2022-03-23 08:10] LABS: BG BASE EXCESS -11.4 mmol/L (-2.0-2.0); BG CARBOXYHEMOGLOBIN 1.1 % (0.5-1.5); BG DEOXYHEMOGLOBIN 4.4 % (0.0-5.0); BG FRACTION INSPIRED OXYGEN 60; BG HCO3 ACT 15.3 mmol/L (22.0-26.0); BG METHEMOGLOBIN 0.6 % (0.0-1.5); BG OXYGEN SATURATION 95.5 % (92.0-98.5); BG OXYHEMOGLOBIN 93.9 % (94.0-97.0); BG PCO2 38.4 mmHg (35.0-45.0); BG PH 7.219 (7.350-7.450); BG PO2 101.3 mmHg (75.0-100.0); BG SAMPLE SITE ALINE; BG VENT MODE VENT - AC
[2022-03-23] MEDS ORDERED: METHYLPREDNISOLONE SOD SUCC 40 MG/ML VIAL IV SCH (09:00)
== END 2022-03-22 18:20 | DRG 329 ==
LOC: ER 18:44 → 5EST 22:14 → MICUSO 22:14 → UNDOADMIN 22:14 → MICUSO 03-22 01:13
PROVIDERS: ADMIT Internal Medicine; ATTEND Internal Medicine
PROC: 0DB78ZX Excision of Stomach, Pylorus, Via Natural or Artificial Opening Endoscopic, Diagnostic (ICD-10-PCS; 2022-03-21)
PROC: 0DJD8ZZ Inspection of Lower Intestinal Tract, Via Natural or Artificial Opening Endoscopic (ICD-10-PCS; 2022-03-21)
PROC: 30233N1 Transfusion of Nonautologous Red Blood Cells into Peripheral Vein, Percutaneous Approach (ICD-10-PCS; 2022-03-21)
PROC: 0D1B0Z4 Bypass Ileum to Cutaneous, Open Approach (ICD-10-PCS; principal; 2022-03-22)
PROC: 0DQL0ZZ Repair Transverse Colon, Open Approach (ICD-10-PCS; 2022-03-22)
PROC: 5A12012 Performance of Cardiac Output, Single, Manual (ICD-10-PCS; 2022-03-22)
DX: C18.0 Malignant neoplasm of cecum (principal); N17.0 Acute kidney failure with tubular necrosis; J96.21 Acute and chronic respiratory failure with hypoxia; I31.3 Pericardial effusion (noninflammatory); J44.1 Chronic obstructive pulmonary disease with (acute) exacerbation; E87.2 Acidosis; K55.9 Vascular disorder of intestine, unspecified; K92.1 Melena; R18.8 Other ascites; I50.32 Chronic diastolic (congestive) heart failure; R57.9 Shock, unspecified; J93.9 Pneumothorax, unspecified; I13.0 Hypertensive heart and chronic kidney disease with heart failure and stage 1 through stage 4 chronic kidney disease, or unspecified chronic kidney disease; K57.20 Diverticulitis of large intestine with perforation and abscess without bleeding; I67.82 Cerebral ischemia; G96.08 Other cranial cerebrospinal fluid leak; K57.30 Diverticulosis of large intestine without perforation or abscess without bleeding; I25.10 Atherosclerotic heart disease of native coronary artery without angina pectoris; I25.5 Ischemic cardiomyopathy; I44.7 Left bundle-branch block, unspecified; C61 Malignant neoplasm of prostate; E78.5 Hyperlipidemia, unspecified; I48.0 Paroxysmal atrial fibrillation; K59.00 Constipation, unspecified; K80.20 Calculus of gallbladder without cholecystitis without obstruction; M48.02 Spinal stenosis, cervical region; N20.0 Calculus of kidney; I46.9 Cardiac arrest, cause unspecified; N28.1 Cyst of kidney, acquired; I07.1 Rheumatic tricuspid insufficiency; E11.65 Type 2 diabetes mellitus with hyperglycemia; D50.9 Iron deficiency anemia, unspecified; K64.8 Other hemorrhoids; N40.0 Benign prostatic hyperplasia without lower urinary tract symptoms; K44.9 Diaphragmatic hernia without obstruction or gangrene; R26.9 Unspecified abnormalities of gait and mobility; R14.0 Abdominal distension (gaseous); I25.2 Old myocardial infarction; F17.210 Nicotine dependence, cigarettes, uncomplicated; Z95.828 Presence of other vascular implants and grafts; Z99.81 Dependence on supplemental oxygen; Z96.643 Presence of artificial hip joint, bilateral; Z85.46 Personal history of malignant neoplasm of prostate; Z86.73 Personal history of transient ischemic attack (TIA), and cerebral infarction without residual deficits; Z87.11 Personal history of peptic ulcer disease; Z87.19 Personal history of other diseases of the digestive system; Z95.5 Presence of coronary angioplasty implant and graft; Z86.718 Personal history of other venous thrombosis and embolism; Z79.899 Other long term (current) drug therapy; E11.22 Type 2 diabetes mellitus with diabetic chronic kidney disease; E11.649 Type 2 diabetes mellitus with hypoglycemia without coma; E86.0 Dehydration; N18.9 Chronic kidney disease, unspecified
CPT/HCPCS: 36415; 36600; 71045; 74176; 76700; 80048; 80053; 80061; 81003; 82375; 82550; 82805; 82962; 83735; 83880; 84484; 85014; 85018; 85025; 86850; 86900; 86920; 87426; 88305; 88307; 88312; 88313; 93005; 93306; 93970; 94002; 94640; 99285; C9113; J0461; J0690; J1940; J2250; J2370; J2704; J2765; J2920; J2930; J3490; J7030; J7060; J7070; P9016; P9047